=== PATIENT | male | born 1980 | race Caucasian/White ===

== ENCOUNTER → 2016-11-01 | Day surgery (SDC) | payer OTHER ==
[2016-11-01] VITALS (9 sets, daily range): BP systolic 111–125; BP diastolic 50–99; PULSE 55–74; RESP 10–16; O2SAT 92–99
[~2016-11-01] VITALS: Ht 188 cm; Wt 106.6 kg
[~2016-11-01] MED LIST: ALBU18HF INH; ATRV10T PO; Acetaminophen IV 1,000 MG in IV Premix 1 EACH IV ONE; Albuterol 2.5 mg/3 mL Inhalation Solution NEB PRN; Atropine 0.4 mg/mL Inj IVPUSH PRN; BENA20TA72 PO; BENZ1TAB7 PO; Bupivacaine Liposome 1.3% 20 mL Inj INFILTRATE ONE; Bupivacaine-MPF 0.5% 30 mL Inj INFILTRATE ONE; CETI10CA PO; CLON1TAB PO; CeFAZolin Inj 2 GM in IV Premix 1 EACH IV ONE; DEXT10TA8 PO; DULO30CA50 PO; Dexamethasone 4 mg/mL Inj IVPUSH PRN; EPHEDrine Sulfate 50 mg/mL Inj IVPUSH PRN; HYDR-656 PO; HYDROmorphone 0.5 mg/0.5 mL iSecure Syringe ONE; HYDROmorphone 1 mg/mL Inj IVPUSH PRN; Labetalol 5 mg/mL 20 mL Inj IV PRN; Lactated Ringer's 1,000 ML IV ONE; Lactated Ringer's 1,000 ML IV SCH; Lactated Ringer's 500 ML IV PRN; MONT10TA20 PO; MetoCLOpramide 5 mg/mL 2 mL Inj IVPUSH PRN; Ondansetron 2 mg/mL 2 mL Inj IVPUSH PRN; Ondansetron 2 mg/mL 2 mL Inj ONE; Phenylephrine 10,000 mCg/mL Inj IVPUSH PRN; Propofol 10,000 mCg/mL 20 mL Inj ONE; fentaNYL-PF 50 mCg/mL 2 mL Inj IVPUSH PRN; fentaNYL-PF 50 mCg/mL 2 mL Inj ONE; hydrALAZINE 20 mg/mL Inj IVPUSH PRN
--- NOTE | 2016-11-01 09:31 | PCM.HPANE ---
Patient Data Date of Service: Nov 01, 2016 Surgeon Admitting Provider: Attending Provider:Dagoberto Solis MD Primary Care Physician:Rubén Spain MD Other Provider:Africa Alonso Anesthesia Reason for Visit Right Inguinal Hernia Ht/WT & BMI Height (Feet): 6 Height (Inches): 2 Weight (Kilograms): 106.6 Body Mass Index 30.00 Allergies Uncoded Allergies: ENVIRONMENTAL (Allergy, Unknown, 10/28/16) molds, cat dander Past Anesthesia History Anesthesia History: Denies:: Abnormal Airway, Anesthesia Reactions, Difficult Intubation, Fam Anesthesia Reaction, Fam Malignant Hypertherm, Malignant Hyperthermia Diabetes History Hx Diabetes?: No MRSA MRSA: No Medications Hypertension Medication: No Home Meds Incl Beta Kyle: No Reported Medications Atorvastatin (Lipitor)10 Mg Tab10 Mg PO DAILY Ref 0 10/28/16 Benazepril (Lotensin)20 Mg Mcolul52 Mg PO DAILY 10/28/16 Montelukast (Singulair)10 Mg Fftztj54 Mg PO HS Ref 0 10/28/16 Cetirizine HCl (Zyrtec)10 Mg Sszsimk06 Mg PO HS #30 CAPSULE Ref 0 10/28/16 Albuterol Sulfate (Ventolin HFA Inhaler)200 Puff/18 Gm Inhaler1 Puff INH Q4 PRN For Wheezing #1 INHALER Ref 0 10/28/16 Clonazepam (Klonopin)1 Mg Tablet1 Mg PO TID PRN For Anxiety Ref 0 10/28/16 Duloxetine 30 Mg Capsule.dr60 Mg PO DAILY Ref 0 10/28/16 hydrOXYzine Hcl (HydrOXYzine Hcl)25 Mg Nswmrj88 Mg PO Q4H PRN For Anxiety Ref 0 10/28/16 Benztropine Mesylate 1 Mg Tablet1 Mg PO DAILY 10/28/16 Dextroamphetamine/Amphetamine (Adderall)10 Mg Wheotc10 Mg PO afternoon Ref 0 10/28/16 Dextroamphetamine/Amphetamine (Adderall)10 Mg Uqbbqz02 Mg PO QAM Ref 0 10/28/16 History History of ENT Problems?: Yes HEENT History: Positive for:: Hearing Problem Sinus Problem (sinus ) Denies:: Abnormal Airway Cataracts Difficult Intubation Dysphagia Glaucoma TMJ Denture Type: None Teeth Condition: Broken Teeth (both front with caps) Hx of Heart Problems?: Yes Cardiovascular History: Positive for:: Hypertension Denies:: AICD Abdominal Aortic Aneurism Atrial Fibrillation Chest Pain Coronary Artery Disease Edema Heart Murmur Irregular Heartbeat Pacemaker Peripheral Vascular Rheumatic Fever Hx of Respiratory Problem?: Yes Respiratory History: Positive for:: Asthma Use of Inhalers / NEBS Denies:: COPD Emphysema Oxygen Administration Pneumonia (hx chronic bronchitis- frequent z packs once yearly) Tuberculosis Use of C-PAP Machine Hx Neurologic Problems?: Yes Neurological History: Denies:: Alzheimer's Disease CVA Headaches Multiple Sclerosis Parkinson's Disease Seizures TIA Other Neurological Pertinent: RLS Hx of GI Problems?: Yes Other GI Pertinent History: right inguinal hernia current admission problem Hx of Problems?: No Genitourinary History: Denies:: Kidney Stones Urinary Tract Infection Other Pertinent History: urinary retention with hernia hx Male Hx: Denies:: Prostate Problems (feeling rising prostate pressure, familial prostate ca) Skin History: Denies:: History Skin Disorders? Pressure Ulcers Hx Musculoskeletal Problems?: Yes Musculoskeletal History: Positive for:: Back Injury (2 bulging disc L5 S1, sciatica down left leg ) Denies:: Degenerative Joint Fibromyalgia Joint Replacement Musculoskeletal Trauma Osteoarthritis Rheumatoid Arthritis Systemic Lupus Hx of Psycho/Social Problems?: Yes Psycho Social History: Positive for:: Anxiety Hx Depression Hx Surgeries?: Yes (wisdom teeth) Hx Any Other Health Problems?: Yes Other History: Denies:: Cancer Thyroid Disease History Blood Transfusions: Positive for:: Accept Blood Products? Denies:: Blood Transfusions Hx Diabetes: No Hx Alcohol Use: YesAlcoholic Drinks Per Day: one to two drinks weekHx Substance Use: Yes (marijuana- edible, vape pens 1-1 CBD, )Have You Smoked inLast 12 mo: No Stop/Bang S-Snoring: Do You Snore Loudly: Yes T-Tired: feel tired, fatigued: No O-Obsered: Observed not breath: Yes P-Blood Pressure: treated: Yes B- Body Mass Index > 35 kg/m2: No A- Age over 50: Yes N- Neck Large Circumference: No G- Gender Male: Yes NARINDER Total Score: 5 NARINDER Risk Assessment: High Risk, =/>3 Yes NARINDER Category 4 OutPt Procedure: Yes Risk Assessment Category Category 1A: Patient has history of documented sleep apnea, and HAS NOT received any narcotic, sedative or anesthesia administration during this stay. Category 1B: Patient has history of documented sleep apnea, and HAS received any narcotic , sedative or anesthesia administration during this stay Category 2: Patient has SUSPECTED Obstructive Sleep Apnea, and HAS received any narcotic , sedative or anesthesia administration during this stay. Category 3: Patient has SUSPECTED Obstructive Sleep Apnea and HAS NOT received narcotic, sedative or anesthesia administration during this stay. Category 4: Outpatient in Procedural Areas with known sleep apnea or who screen positive for High Risk via the STOP/BANG questionnaire. Exam Exam Vital Signs Vital Signs Date Time Temp Pulse Resp B/P Pulse Ox O2 Delivery O2 Flow Rate FiO2 11/01/16 09:14 36.4 66 16 123/80 99 Room Air General Appearance: Alert, Oriented X3, Cooperative HEENT/AIRWAY: MP 2, Neck Movement, Mouth Opening, Other (large hill) Lungs: Clear to Auscultation, Normal Air Movement Heart: Regular Rate/Rhythm, Normal S1, Normal S2 Meds/Labs/Diagnostics Admission Meds Current Medications Lactated Ringer's (Lr) 1,000 ml @ 120 mls/hr Q8H20M ONCE IV Last administered on 11/01/16t 08:59; Start 11/01/16 at 05:00; Stop 11/01/16 at 13:19 Plan Impression Patient chart reviewed, patient interviewed and anesthestic plan with risks, benefits, and alternatives discussed, and informed consent obtained. NPO per Anesth. Guidelines: Yes ASA Physical Status: ASA2 Mod Systemic Disease Anesthetic Plan: GA Bene/Risks/Altern/Consents: Yes HP Complete Prior to Induction: Yes Clinton Weaver MD Nov 01, 2016 09:31
--- NOTE | 2016-11-01 12:42 | PCM.ANEP1 ---
Post Anesthesia PACU Phase 1 Assessment Date of Service: Nov 01, 2016 Vital Signs Vital Signs Date Time Temp Pulse Resp B/P Pulse Ox O2 Delivery O2 Flow Rate FiO2 11/01/16 12:40 36.5 55 12 123/85 95 Room Air 11/01/16 12:38 37.2 66 14 121/77 95 Room Air 11/01/16 12:19 73 16 117/50 92 Room Air 11/01/16 12:14 74 12 125/79 94 Room Air 11/01/16 12:10 61 10 119/64 96 Room Air 11/01/16 12:05 36.5 61 15 123/72 99 Simple Mask 8 11/01/16 09:14 36.4 66 16 123/80 99 Room Air Anesthetic Administered: GA Level of Alertness: Awake, talking JAIMES's with Equal Strength: Yes Pain: No Nausea or Vomiting: No CV Function & Hydration Stable: Yes Airway Device: Oxygen Delivery: Simple Mask Lungs: Normal Air Movement PACU Phase 2 Assessment Complications: No Follow up Care: N/A Patient Instructions Provided: N/A Clinton Weaver MD Nov 01, 2016 12:42
--- NOTE | 2016-11-02 10:46 | OP ---
[address] [address] OPERATIVE REPORT PATIENT: RAFAELA BAILEY : 1980 MR#: [id number] ADMIT: 11/01/2016 JOB ID: [id number] CORRECTED REPORT: DATE OF SURGERY: 11/01/2016 PREOPERATIVE DIAGNOSIS(ES): Symptomatic right inguinal hernia. POSTOPERATIVE DIAGNOSIS(ES): 1. Symptomatic right inguinal hernia. 2. Also direct inguinal hernia. SURGEON: Dagoberto Solis M.D. FINDINGS: There was a weakened floor with protrusion of intra- abdominal contents within a peritoneal sac medial to the internal ring and then extending laterally along the floor. The careful dissection of the inner aspect of the upper inner quadrant of the cord failed to identify an associated indirect inguinal hernia. PROCEDURE SUMMARY: The patient was positioned supine and was administered general anesthesia to the lower abdomen. Genitalia and groin were then prepped and draped in a sterile fashion. The local anesthetic was used to infiltrate the skin overlying the right inguinal canal and sharp skin incision was then made and then cautery and blunt dissection technique were utilized to divide the subcutaneous fat and Carolyne fascia layer down to the level of the external oblique. This was then incised longitudinally parallel to its fibers. The inguinal canal was carefully opened, inspected and the cord was carefully isolated, mobilized from its surrounding attachments. Immediately the floor was found to be detected and extended medialward, but no evidence of an indirect anatomical arrangement. The cord was then carefully isolated and the boundaries of the hernia sac were then identified and from the fibrous layers of the internal oblique, the hernia sac thus be immobilized sufficiently to be dunked behind abdominal wall proper could be undertaken. The inguinal floor was then reapproximated using a running 2-0 Monocryl simply to facilitate positioning of the mesh. Next a segment of polypropylene single layer mesh was selected measuring 3 x 6 inches. It was trimmed significantly. Lateral tails were created across using 3-0 Prolene. The PDS graft was secured at the pubic tubercle along Poupart ligament. The inferior edge was trimmed appropriately superiorly and it laid very nicely behind the external oblique. The external oblique was then reapproximated and then closed using running 2-0 Monocryl. The Carolyne fascia was closed using the same suture, but with an interrupted technique. Finally the skin was reapproximated in a running subcuticular 4-0 Monocryl. The skin was clean and dry and a small strip of Telfa was applied over the incision line. An OpSite was then applied over the operative area itself. The patient was then awakened, transferred to the [facility], and transferred to recovery awake in stable condition. Corrected by JUNIOR 11/05/16 at 10:47am Corrected patient name.
== END | disposition home or self-care (01) ==
LOC: SAS 08:28
PROVIDERS: ATTEND Specialist
DX: K40.90 Unilateral inguinal hernia, without obstruction or gangrene, not specified as recurrent (principal); K40.31 Unilateral inguinal hernia, with obstruction, without gangrene, recurrent; I10 Essential (primary) hypertension; J45.909 Unspecified asthma, uncomplicated; F90.9 Attention-deficit hyperactivity disorder, unspecified type; G25.81 Restless legs syndrome; F41.8 Other specified anxiety disorders; Z87.891 Personal history of nicotine dependence
CPT/HCPCS: 49505; C1781; J0131; J0690; J1170; J2250; J2405; J2704; J2765; J3010; J7120